=== PATIENT | male | born 1955 | race Two or more races ===

== ENCOUNTER 2024-07-19 08:28 | Day surgery (SDC) | payer OTHER ==
[2024-07-15 14:53] LABS: Urine Bacteria None Seen /hpf (None Seen)
[2024-07-15 14:56] LABS: Basophils # (auto) 0 10 ^3/uL (0-0.2); Basophils % (auto) 0.7 % (0.0-2.0); Eosinophils # (auto) 0.1 10 ^3/uL (0-0.8); Hematocrit 45.2 % (41.0-53.0); Hemoglobin 14.8 g/dL (13.5-17.5); Lymphocytes # (auto) 1.7 10 ^3/uL (0.4-5.4); Lymphocytes % (auto) 28.3 % (10.0-50.0); Mean Corpuscular Hemoglobin 28.1 pg (28.0-32.0); Mean Corpuscular Hgb Conc. 32.7 g/dL (32.0-36.0); Mean Corpuscular Volume 85.8 fL (80.0-100.0); Monocytes # (auto) 0.4 10 ^3/uL (0-1.3); Monocytes % (auto) 6.9 % (0.0-12.0); Neutrophils # (auto) 3.8 10 ^3/uL (1.6-8.6); Neutrophils % (auto) 63.1 % (37.0-80.0); Nucleated Red Blood Cells % 0.1 %; Platelet Count (auto) 151 10^3/uL (140-450); Red Blood Cells 5.27 10^6/uL (4.5-5.90); Red Cell Distribution Width 15.1 % (11.8-14.3); White Blood Cell 5.9 10^3/uL (4.4-10.8)
[2024-07-15 15:13] LABS: INR 1.01 (0.9-1.15); Partial Thromboplastin Time 32.4 SEC (24.5-34.5); Prothrombin Time 10.7 sec (9.3-11.8)
[2024-07-15 15:25] LABS: Alanine Aminotransferase 14 U/L (7-40); Albumin 4.8 g/dL (3.2-4.8); Alkaline Phosphatase 79 U/L (46-116); Anion Gap 8 (5-15); Aspartate Aminotransferase 17 U/L (13-40); Bilirubin, Total 0.4 mg/dL (0.2-1.0); Blood Urea Nitrogen 20 mg/dL (9-23); Calcium 10.5 mg/dL (8.7-10.4); Carbon Dioxide 26 mmol/L (20-31); Chloride 103 mmol/L (98-107); Glucose 173 mg/dL (74-106); Potassium 4.6 mmol/L (3.5-5.1); Sodium 137 mmol/L (136-145); Total Protein 7.8 g/dL (5.7-8.2)
[2024-07-15 15:35] LABS: Urine Blood Negative /uL (Negative); Urine Clarity Clear (Clear); Urine Color Light-Yellow (Yellow); Urine Protein, UAD Negative (Negative); Urine Urobilinogen Normal (Negative); Urine WBC <1 /hpf (0 - 3)
[~2024-07-19] VITALS: Ht 167.6 cm; Wt 70.3 kg
[~2024-07-19 08:28] MED LIST: ASPI1TAB20 PO; ATEN-60 PO; BUPR-133 PO; EMPA1TAB PO; LISI20TA56 PO; OMEP20TA PO; TADA5TAB11 PO; TAMS-35 PO; TIRZ2.5I SC
[2024-07-19] MEDS ORDERED: MIDAZOLAM HCL 2MG/2ML 2ml VIAL (1mg/ml) ONE (10:35)
[2024-07-19] MEDS ORDERED: MEPERIDINE HCL (25 MG/ML) 1ML VIAL ONE (10:35)
[2024-07-19] MEDS ORDERED: fentaNYL CITRATE 100 MCG/2 ML VL ONE (10:35)
[2024-07-19] MEDS ORDERED: LIDOCAINE VISCOUS 2% 15ML UD ONE (10:38)
[2024-07-19] MEDS ORDERED: PROPOFOL 10 MG/ML 20 ML IV ONE (11:11)
[2024-07-19] MEDS ORDERED: DexAMETHasone SOD PHOS 10MG/1ML VIAL INJ ONE (11:11)
--- NOTE | 2024-07-19 11:40 | DVHOP2 ---
Operative Report DATE OF OPERATION: 07/19/24 PROCEDURE: Upper Endoscopy with biopsy. PREOPERATIVE INDICATION: The patient is a 69 -year-old male undergoing endoscopy for history of cirrhosis and blood in the stool POSTOPERATIVE DIAGNOSES: 1. Minimal antral gastritis 2. Slightly irregular squamocolumnar junction otherwise normal examination up to the 2nd and 3rd part of the duodenal 3. There was no evidence of esophageal varices or portal hypertension gastropathy on endoscopic evaluation PROCEDURE PERFORMED BY: Jorge Ogden GI NURSE: Radha SCOPE: Olympus videoendoscope. ASA CLASS: 2. PREOPERATIVE MEDICATIONS: Dr. Sharee Saravia PROCEDURE IN DETAIL: After obtaining an informed consent, the patient was placed on left lateral decubitus position. The patient was then sedated with the above medications. A bite block was placed between his teeth. The endoscope was then passed through the oropharynx, into the esophagus, and through the stomach and pylorus up to the second and third part of the duodenum. The endoscope was then withdrawn. The 2nd and 3rd part of the duodenum and the duodenal bulb were normal. The pre-pyloric area antrum and body showed minimal gastritis. On retroflexion the fundus cardia and angularis were normal. Duodenal and gastric biopsies were obtained. The endoscope was then withdrawn into the distal esophagus where there was a slightly irregular squamocolumnar junction but no significant hiatal hernia or esophagitis The remaining distal and proximal esophagus and oropharynx were unremarkable. There were no esophageal varices. The patient tolerated the procedure well without difficulty. COMPLICATIONS : None SPECIMENS: Duodenal biopsies Gastric biopsies DISPOSITION: Stable D/C to home PLAN: 1. Await for biopsy result 2. Will try H2 blockers as needed as needed 3. Proceed with colonoscopy JORGE OGDEN MD Jul 19, 2024 11:40
--- NOTE | 2024-07-19 11:42 | DVHOP2 ---
Operative Report DATE OF OPERATION: 07/19/24 PROCEDURE: Colonoscopy with cold biopsy. PREOPERATIVE INDICATION: The patient is a 69 -year-old male undergoing colonoscopy for screening with history of blood in the stool POSTOPERATIVE DIAGNOSES: 1. Moderate diffuse melanosis coli 2. There were two diminutive benign-appearing sigmoid polyps that were seen and removed by cold biopsy forceps 3. Otherwise essentially completely normal colonoscopy examination up to the cecum PROCEDURE PERFORMED BY: Jorge Ogden M.D. SCOPE: Olympus videocolonoscope. ASA CLASS: 2. PREOPERATIVE MEDICATIONS: Dr. Sharee Saravia PROCEDURE IN DETAIL: After obtaining an informed consent, the patient was placed on left lateral decubitus position. He was then sedated with the above medications. A rectal examination was performed that was normal. The colonoscope was then passed through the anus into the rectosigmoid and through the descending, transverse, and ascending colon up to the cecum with visualization of the appendiceal orifice, base of the cecum and the ileocecal valve. The colonoscope was then withdrawn. Base of the cecum was not well visualized because there were some residual solid debris in this area. However after irrigation aspiration no underlying gross lesion was noted under the debris. Patient had moderate diffuse melanosis coli. In the sigmoid he had two diminutive benign-appearing polyps that were removed by cold biopsy forceps On retroflexion and straight on view he had 1+ internal hemorrhoids. The patient tolerated the procedure well without difficulty. WITHDRAWAL TIME: 7 minutes QUALITY OF THE PREP: [place] Bowel Prep score: 9. COMPLICATIONS : None SPECIMENS: Sigmoid polyps DISPOSITION: Stable D/C to home PLAN: 1. Repeat colonoscopy base on biopsy result likely in 7-10 years 2. Resume GI soft diet advance as tolerated 3. Avoid laxatives that contain [place] 4. Outpatient follow up with me in 4-6 weeks to review results and discuss further management JORGE OGDEN MD Jul 19, 2024 11:42
[2024-07-19 12:10] VITALS: BP 129/75; PULSE 73; RESP 15; O2SAT 100
== END 2024-07-19 12:16 | disposition home or self-care (01) ==
LOC: GI 08:28
PROVIDERS: ATTEND Internal Medicine Gastroenterology
DX: K92.1 Melena (principal); R19.4 Change in bowel habit; K29.50 Unspecified chronic gastritis without bleeding; K63.5 Polyp of colon; K31.89 Other diseases of stomach and duodenum; K63.89 Other specified diseases of intestine; I10 Essential (primary) hypertension; E11.9 Type 2 diabetes mellitus without complications; Z87.891 Personal history of nicotine dependence; Z95.5 Presence of coronary angioplasty implant and graft; Z86.2 Personal history of diseases of the blood and blood-forming organs and certain disorders involving the immune mechanism; Z79.899 Other long term (current) drug therapy; Z79.82 Long term (current) use of aspirin
CPT/HCPCS: 36415; 43239; 45380; 80053; 81001; 82962; 85025; 85610; 85730; 88305; 88312; 88342; J1100; J2175; J2250; J2704; J3010; J7030

== ENCOUNTER → 2025-02-10 | Outpatient (CLI) | payer OTHER ==
[2025-02-10 08:20] LABS: Urine Bacteria None Seen /hpf (None Seen)
[2025-02-10 08:39] LABS: Urine Blood Negative /uL (Negative); Urine Clarity Clear (Clear); Urine Color Light-Yellow (Yellow); Urine Protein, UAD Negative (Negative); Urine Specific Gravity 1.024 (1.001-1.035); Urine Squamous Epithelial Cell None Seen /hpf (<5); Urine Urobilinogen Normal (Negative); Urine WBC < 1 /HPF (0-3)
[2025-02-10 08:42] LABS: Basophils # (auto) 0 10 ^3/uL (0-0.2); Eosinophils # (auto) 0.1 10 ^3/uL (0-0.8); Eosinophils % (auto) 2.1 % (0.0-7.0); Hematocrit 42.6 % (41.0-53.0); Hemoglobin 14.3 g/dL (13.5-17.5); Lymphocytes # (auto) 1.6 10 ^3/uL (0.4-5.4); Lymphocytes % (auto) 37.5 % (10.0-50.0); Mean Corpuscular Hemoglobin 28.6 pg (28.0-32.0); Mean Corpuscular Hgb Conc. 33.4 g/dL (32.0-36.0); Mean Corpuscular Volume 85.7 fL (80.0-100.0); Monocytes # (auto) 0.6 10 ^3/uL (0-1.3); Monocytes % (auto) 13.5 % (0.0-12.0); Neutrophils % (auto) 45.9 % (37.0-80.0); Platelet Count (auto) 127 10^3/uL (140-450); Red Blood Cells 4.98 10^6/uL (4.5-5.90); White Blood Cell 4.4 10^3/uL (4.4-10.8)
[2025-02-10 08:58] LABS: Alanine Aminotransferase 16 U/L (7-40); Alkaline Phosphatase 69 U/L (46-116); Anion Gap 8 (5-15); BUN/Creatinine Ratio 23.1 (10.0-20.0); Blood Urea Nitrogen 21 mg/dL (9-23); Calcium 10.4 mg/dL (8.7-10.4); Carbon Dioxide 26 mmol/L (20-31); Chloride 104 mmol/L (98-107); LDL Cholesterol 56 mg/dL (< 100); Magnesium 2.3 mg/dL (1.6-2.6); Potassium 4.4 mmol/L (3.5-5.1); Sodium 138 mmol/L (136-145); Total Protein 7.4 g/dL (5.7-8.2)
[2025-02-10 09:00] LABS: Bilirubin, Total 0.5 mg/dL (0.2-1.0); Cholesterol 121 mg/dL (< 200)
[2025-02-10 09:02] LABS: Albumin 4.8 g/dL (3.2-4.8); Glucose 142 mg/dL (74-106); HDL Cholesterol 40 mg/dL (40-59); Triglycerides 257 mg/dL (< 150)
[2025-02-10 09:19] LABS: Uric Acid 3.6 mg/dL (3.7-9.2)
[2025-02-10 09:26] LABS: Aspartate Aminotransferase 20 U/L (13-40)
[2025-02-10 10:35] LABS: Folate (Folic Acid) 23.97 ng/mL (>5.38)
== END | disposition home or self-care (01) ==
LOC: LAB 08:02
PROVIDERS: ATTEND Internal Medicine
DX: E78.49 Other hyperlipidemia (principal); E61.2 Magnesium deficiency; E79.0 Hyperuricemia without signs of inflammatory arthritis and tophaceous disease; E11.9 Type 2 diabetes mellitus without complications; I25.10 Atherosclerotic heart disease of native coronary artery without angina pectoris; E55.9 Vitamin D deficiency, unspecified; D51.9 Vitamin B12 deficiency anemia, unspecified; R94.6 Abnormal results of thyroid function studies; R82.90 Unspecified abnormal findings in urine; R68.89 Other general symptoms and signs; R82.998 Other abnormal findings in urine; D50.9 Iron deficiency anemia, unspecified; K74.5 Biliary cirrhosis, unspecified
CPT/HCPCS: 36415; 80053; 80061; 81001; 82306; 82607; 82746; 83036; 83735; 84443; 84550; 85025; 87086

== ENCOUNTER → 2025-07-17 | Outpatient (CLI) | payer OTHER ==
[2025-07-17 09:44] LABS: Hematocrit 44.2 % (41.0-53.0); Hemoglobin 14.5 g/dL (13.5-17.5); Mean Corpuscular Hemoglobin 28.2 pg (28.0-32.0); Mean Corpuscular Volume 85.7 fL (80.0-100.0); Nucleated Red Blood Cells % 0.0 %
[2025-07-17 10:12] LABS: Alanine Aminotransferase 20 U/L (7-40); Alkaline Phosphatase 60 U/L (46-116); Anion Gap 10 (5-15); BUN/Creatinine Ratio 18.4 (10.0-20.0); Bilirubin, Total 0.6 mg/dL (0.2-1.0); Blood Urea Nitrogen 19 mg/dL (9-23); Calcium 10.2 mg/dL (8.7-10.4); Carbon Dioxide 27 mmol/L (20-31); Chloride 102 mmol/L (98-107); Potassium 4.6 mmol/L (3.5-5.1); Sodium 139 mmol/L (136-145); Total Protein 8.2 g/dL (5.7-8.2)
[2025-07-17 10:20] LABS: INR 1.04 (0.9-1.15); Prothrombin Time 11.0 sec (9.3-11.8)
[2025-07-17 10:33] LABS: Albumin 5.1 g/dL (3.2-4.8); Glucose 148 mg/dL (74-106)
[2025-07-18 12:00] LABS: Hepatitis A Total Antibody Positive (Negative)
[2025-07-18 12:02] LABS: Hepatitis B Surface Antigen Negative (Negative)
[2025-07-18 13:12] LABS: Hepatitis C Antibody Reactive (Negative)
== END | disposition home or self-care (01) ==
LOC: LAB 09:07
PROVIDERS: ATTEND Internal Medicine Gastroenterology
DX: K29.00 Acute gastritis without bleeding (principal); K74.60 Unspecified cirrhosis of liver; B96.81 Helicobacter pylori [H. pylori] as the cause of diseases classified elsewhere
CPT/HCPCS: 36415; 80053; 82105; 82140; 85025; 85610; 86704; 86706; 86708; 86803; 87340; 87902